=== PATIENT | female | born 1965 | race Two or more races ===

== ENCOUNTER 2022-06-16 13:07 | Emergency (ER) | payer SELFPAY ==
[2022-06-16 13:18] VITALS: BP 143/84; PULSE 82; RESP 20; TEMP 36.4; O2SAT 99; BMI 28.2
--- NOTE | 2022-06-16 13:23 | ED.HA ---
HPI - Headache General Chief Complaint: Headache <INDIRA Roland - Last Filed: 06/16/22 13:25> Stated Complaint: Migraine, vomiting <INDIRA Roland - Last Filed: 06/16/22 13:25> Time Seen by Provider: 06/16/22 13:26 <INDIRA Roland - Last Filed: 06/16/22 13:25> Source: patient <Leno Randall MD - Last Filed: 06/16/22 15:50> Mode of arrival: ambulatory <Leno Randall MD - Last Filed: 06/16/22 15:50> Limitations: no limitations <Leno Randall MD - Last Filed: 06/16/22 15:50> History of Present Illness HPI Narrative: patient with a long history of migraine with vomiting. This episode starting this morning <Leno Randall MD - Last Filed: 06/16/22 15:50> MD elicited complaint: headache and migraine <Leno Randall MD - Last Filed: 06/16/22 15:50> Pertinent past history: migraines <Leno Randall MD - Last Filed: 06/16/22 15:50> Onset (ago): hour(s) <Leno Randall MD - Last Filed: 06/16/22 15:50> Onset description: gradually <Leno Randall MD - Last Filed: 06/16/22 15:50> Severity: severe <Leno Randall MD - Last Filed: 06/16/22 15:50> Quality & Timing: aching and throbbing <Leno Randall MD - Last Filed: 06/16/22 15:50> Related Data Home Medications: Previous Rx's Medication Instructions Recorded naproxen 500 mg tablet (Naprosyn) 500 mg PO BID #20 tabs 06/16/22 ondansetron 4 mg disintegrating 4 mg PO Q8H 4 days #12 tabs 06/16/22 tablet <INDIRA Roland - Last Filed: 06/16/22 13:25> Allergies/Adverse Reactions: Allergies Allergy/AdvReac Type Severity Reaction Status Date / Time No Known Allergies Allergy Verified 06/16/22 13:18 <INDIRA Roland - Last Filed: 06/16/22 13:25> Review of Systems Review of Systems: Yes all other systems are reviewed and are negative <Leno Randall MD - Last Filed: 06/16/22 15:50> Neurologic: Denies Sensory deficit (Neuro) <Leno Randall MD - Last Filed: 06/16/22 15:50> Comments: headache and vomitting <Leno Randlal MD - Last Filed: 06/16/22 15:50> [facility] Past Medical History Medical History: Medical History (Updated 06/16/22 @ 15:50 by Leno Randall MD) Migraine <INDIRA Roland - Last Filed: 06/16/22 13:25> Social History Social History: Social History Advance Directives: No <INDIRA Roland - Last Filed: 06/16/22 13:25> Physical Exam Vital Signs: Vital Signs: Last Vital Signs Temp 97.5 F 06/16/22 13:18 Pulse 82 06/16/22 13:18 Resp 20 06/16/22 13:18 BP 143/84 H 06/16/22 13:18 Pulse Ox 99 06/16/22 13:18 O2 Del Method 06/16/22 13:18 BMI result Body Mass Index 28.2 <INDIRA Roland - Last Filed: 06/16/22 13:25> Vital Signs: Last Vital Signs Temp 97.5 F 06/16/22 13:18 Pulse 82 06/16/22 13:18 Resp 20 06/16/22 13:18 BP 143/84 H 06/16/22 13:18 Pulse Ox 99 06/16/22 13:18 O2 Del Method 06/16/22 13:18 BMI result Body Mass Index 28.2 <Leno Randall MD - Last Filed: 06/16/22 15:50> Const: Other: vomiting in pain <Leno Randall MD - Last Filed: 06/16/22 15:50> Nutritional Appearance: average body habitus <eLno Randall MD - Last Filed: 06/16/22 15:50> Orientation/consciousness: oriented to person and patient oriented x3 <Leno Randall MD - Last Filed: 06/16/22 15:50> Limitations: no limitations <Leno Randall MD - Last Filed: 06/16/22 15:50> HEENT: Head: Yes normal to inspection <Leno Randall MD - Last Filed: 06/16/22 15:50> Ears: external ears normal <Leno Randall MD - Last Filed: 06/16/22 15:50> General nose exam: Normal external nose present <Leno Randall MD - Last Filed: 06/16/22 15:50> Mouth: Normal oral and palatal mucosa present and oropharynx normal <Leno Randall MD - Last Filed: 06/16/22 15:50> Throat: Yes posterior oropharynx normal <Leno Randall MD - Last Filed: 06/16/22 15:50> Eyes: General: appearance normal, both eyes and all related structures <Leno Randall MD - Last Filed: 06/16/22 15:50> Neck: Other: supple <Leno Randall MD - Last Filed: 06/16/22 15:50> Neck: Yes normal visual inspection <Leno Randall MD - Last Filed: 06/16/22 15:50> Chest: Chest palpation & inspection: normal inspection of the chest <Leno Randall MD - Last Filed: 06/16/22 15:50> Resp: Auscultation: clear to auscultation bilaterally <Leno Randall MD - Last Filed: 06/16/22 15:50> Cardio: Jugular venous distension: no JVD <Leno Randall MD - Last Filed: 06/16/22 15:50> Rate: regular rate <Leno Randall MD - Last Filed: 06/16/22 15:50> Rhythm: regular rhythm <Leno Randall MD - Last Filed: 06/16/22 15:50> Heart sounds: S1 normal heart sound present and S2 normal heart sound present <Leno Randall MD - Last Filed: 06/16/22 15:50> GI: Inspection: Yes normal to inspection <Leno Randall MD - Last Filed: 06/16/22 15:50> Palpation (GI): Soft to palpation, nontender and No hepatosplenomegaly present <Leno Randall MD - Last Filed: 06/16/22 15:50> Auscultation: normal bowel sounds <Leno Randall MD - Last Filed: 06/16/22 15:50> : General: Yes no CVA tenderness <Leno Randall MD - Last Filed: 06/16/22 15:50> Back/Spine/Pelvis: Back: no CVA tenderness <Leno Randall MD - Last Filed: 06/16/22 15:50> Skin: General skin exam: no rashes or lesions noted <Leno Randall MD - Last Filed: 06/16/22 15:50> Neuro: General: oriented to person and patient oriented x3 <Leno Randall MD - Last Filed: 06/16/22 15:50> Cranial nerves: Yes CN's II-XII intact bilaterally <Leno Randall MD - Last Filed: 06/16/22 15:50> Motor exam (neuro): 5/5 motor strength present throughout <Leno Randall MD - Last Filed: 06/16/22 15:50> Sensory Exam: No Sensory deficit (Neuro) <Leno Randall MD - Last Filed: 06/16/22 15:50> Extrem: General: Yes normal to inspection <Leno Randall MD - Last Filed: 06/16/22 15:50> Psych: Appearance: grossly normal <Leno Randall MD - Last Filed: 06/16/22 15:50> Course Course Course Narrative: RME- 13:25pm - 56yoF c PMHx of migraine headaches presenting to the ED with complaints of a headache that started prior to arrival. With associated nausea and epigastric abdominal pain. at bedside is interpreter and translator due to patient speaks airbag. He is very upset reports that she is taking medication she should possibly be not be taking. Reports that she took 2 oxycodone that were her sisters and he told her not to take that. She is also taking Dramamine. Plan: Labs, COVID/influenza swab, drug urine screen. Patient is stable she will be sent back to the waiting room to be evaluated in the ED. <INDIRA Roland - Last Filed: 06/16/22 13:25> Reevaluation(s) Reevaluation #1: patient improved, feeling better neurologically intact <Leno Randall MD - Last Filed: 06/16/22 15:50> Time: 15:48 <Leno Randall MD - Last Filed: 06/16/22 15:50> Medications Administered Discontinued Medications Generic Name Dose Route Start Last Admin Trade Name Freq PRN Reason Stop Dose Admin Promethazine HCl 25 mg/ Sodium 51 mls @ 204 mls/hr 06/16/22 13:40 06/16/22 15:06 Chloride IV 06/16/22 13:41 Infused ONCE ONE Infusion Sodium Chloride 500 mls @ 250 mls/hr 06/16/22 13:45 06/16/22 13:53 Ns IVCONT 06/16/22 15:44 250 mls/hr .Q2H MAIDA Administration Ketorolac Tromethamine 30 mg 06/16/22 13:40 06/16/22 13:53 Ketorolac Tromethamine 30 Mg/Ml Vial IVPUSH 06/16/22 13:41 30 mg ONCE ONE Administration <INDIRA Roland - Last Filed: 06/16/22 13:25> Medications Administered Discontinued Medications Generic Name Dose Route Start Last Admin Trade Name Freq PRN Reason Stop Dose Admin Promethazine HCl 25 mg/ Sodium 51 mls @ 204 mls/hr 06/16/22 13:40 06/16/22 15:06 Chloride IV 06/16/22 13:41 Infused ONCE ONE Infusion Sodium Chloride 500 mls @ 250 mls/hr 06/16/22 13:45 06/16/22 13:53 Ns IVCONT 06/16/22 15:44 250 mls/hr .Q2H MAIDA Administration Ketorolac Tromethamine 30 mg 06/16/22 13:40 06/16/22 13:53 Ketorolac Tromethamine 30 Mg/Ml Vial IVPUSH 06/16/22 13:41 30 mg ONCE ONE Administration <Leno Randall MD - Last Filed: 06/16/22 15:50> Medical Decision Making Lab Data Result Diagrams: : 06/16/22 13:40 06/16/22 13:40 <INDIRA Roland - Last Filed: 06/16/22 13:25> Labs: Lab Results 06/16/22 06/16/22 06/16/22 Range/Units 13:40 13:40 13:40 WBC 9.1 (4.8-10.8) X10*3/uL RBC 4.39 (4.20-5.50) X10*6/uL Hgb 12.4 (12.0-16.0) g/dl Hct 38.8 (37.0-47.0) % MCV 88.4 (80.0-98.0) fL MCH 28.2 (27.0-33.0) pg MCHC 32.0 (31.0-35.0) g/dl RDW 13.0 (11.0-16.0) % Plt Count 267 (160-400) X10*3/uL MPV 11.2 (9.4-12.3) fL Immature Gran % (Auto) 0.3 (0.0-0.4) % Neut % (Auto) 68.9 (45-73) % Lymph % (Auto) 24.3 (20-40) % [place] % (Auto) 4.3 (2-11) % Eos % (Auto) 1.9 (0-4) % Baso % (Auto) 0.3 (0-2) % Lymph # (Auto) 2.2 (1.2-4.9) X10*3/uL [place] # (Auto) 0.4 (0.1-1.2) X10*3/uL Eos # (Auto) 0.2 (0.0-0.4) X10*3/uL Baso # (Auto) 0.0 (0.0-0.2) X10*3/uL Abs Immat Gran (auto) 0.03 (0.00-0.03) X10*3/uL Absolute Neuts (auto) 6.3 (2.0-8.3) x10*3/uL Absolute Nucleated RBC 0.000 (0.0-0.012) X10*3/uL Nucleated RBC % (auto) 0.0 (0.0-0.2) /100WBC PT 10.7 (10.0-13.1) SEC INR 0.9 (0.9-1.1) Sodium 142 (135-145) mmol/L Potassium 3.5 (3.3-5.1) mmol/L Chloride 105 (96-108) mmol/L Carbon Dioxide 25 (22-29) mmol/L Anion Gap 16 (12-20) BUN 23 H (9-16) mg/dL Creatinine 0.73 (0.5-1.4) mg/dL Estim Creat Clear Calc 92.5 Estimated GFR > 60 Random Glucose 134 H (60-115) mg/dL Calcium 9.5 (8.4-10.2) mg/dL Magnesium 2.0 (1.6-2.6) mg/dL Total Bilirubin 0.4 (0.0-1.0) mg/dL AST 13 (5-31) U/L ALT 21 (0-31) U/L Alkaline Phosphatase 75 (39-117) U/L Total Protein 7.9 (6.5-8.0) g/dL Albumin 5.0 (3.5-5.0) g/dL COVID-19 (BONITA) (Negative) COVID-19 Clin Com Influenza Type A (NAOMI) (Negative) Influenza Type B (NAOMI) (Negative) Influenza A & B Note 06/16/22 06/16/22 Range/Units 13:45 13:45 WBC (4.8-10.8) X10*3/uL RBC (4.20-5.50) X10*6/uL Hgb (12.0-16.0) g/dl Hct (37.0-47.0) % MCV (80.0-98.0) fL MCH (27.0-33.0) pg MCHC (31.0-35.0) g/dl RDW (11.0-16.0) % Plt Count (160-400) X10*3/uL MPV (9.4-12.3) fL Immature Gran % (Auto) (0.0-0.4) % Neut % (Auto) (45-73) % Lymph % (Auto) (20-40) % [place] % (Auto) (2-11) % Eos % (Auto) (0-4) % Baso % (Auto) (0-2) % Lymph # (Auto) (1.2-4.9) X10*3/uL [place] # (Auto) (0.1-1.2) X10*3/uL Eos # (Auto) (0.0-0.4) X10*3/uL Baso # (Auto) (0.0-0.2) X10*3/uL Abs Immat Gran (auto) (0.00-0.03) X10*3/uL Absolute Neuts (auto) (2.0-8.3) x10*3/uL Absolute Nucleated RBC (0.0-0.012) X10*3/uL Nucleated RBC % (auto) (0.0-0.2) /100WBC PT (10.0-13.1) SEC INR (0.9-1.1) Sodium (135-145) mmol/L Potassium (3.3-5.1) mmol/L Chloride (96-108) mmol/L Carbon Dioxide (22-29) mmol/L Anion Gap (12-20) BUN (9-16) mg/dL Creatinine (0.5-1.4) mg/dL Estim Creat Clear Calc Estimated GFR Random Glucose (60-115) mg/dL Calcium (8.4-10.2) mg/dL Magnesium (1.6-2.6) mg/dL Total Bilirubin (0.0-1.0) mg/dL AST (5-31) U/L ALT (0-31) U/L Alkaline Phosphatase (39-117) U/L Total Protein (6.5-8.0) g/dL Albumin (3.5-5.0) g/dL COVID-19 ([facility]ONITA) Negative (Negative) COVID-19 Clin Com See Note Influenza Type A (NAOMI) Negative (Negative) Influenza Type B (NAOMI) Negative (Negative) Influenza A & B Note See Note <INDIRA Roland - Last Filed: 06/16/22 13:25> Lab Results 06/16/22 06/16/22 06/16/22 Range/Units 13:40 13:40 13:40 WBC 9.1 (4.8-10.8) X10*3/uL RBC 4.39 (4.20-5.50) X10*6/uL Hgb 12.4 (12.0-16.0) g/dl Hct 38.8 (37.0-47.0) % MCV 88.4 (80.0-98.0) fL MCH 28.2 (27.0-33.0) pg MCHC 32.0 (31.0-35.0) g/dl RDW 13.0 (11.0-16.0) % Plt Count 267 (160-400) X10*3/uL MPV 11.2 (9.4-12.3) fL Immature Gran % (Auto) 0.3 (0.0-0.4) % Neut % (Auto) 68.9 (45-73) % Lymph % (Auto) 24.3 (20-40) % [place] % (Auto) 4.3 (2-11) % Eos % (Auto) 1.9 (0-4) % Baso % (Auto) 0.3 (0-2) % Lymph # (Auto) 2.2 (1.2-4.9) X10*3/uL [place] # (Auto) 0.4 (0.1-1.2) X10*3/uL Eos # (Auto) 0.2 (0.0-0.4) X10*3/uL Baso # (Auto) 0.0 (0.0-0.2) X10*3/uL Abs Immat Gran (auto) 0.03 (0.00-0.03) X10*3/uL Absolute Neuts (auto) 6.3 (2.0-8.3) x10*3/uL Absolute Nucleated RBC 0.000 (0.0-0.012) X10*3/uL Nucleated RBC % (auto) 0.0 (0.0-0.2) /100WBC PT 10.7 (10.0-13.1) SEC INR 0.9 (0.9-1.1) Sodium 142 (135-145) mmol/L Potassium 3.5 (3.3-5.1) mmol/L Chloride 105 (96-108) mmol/L Carbon Dioxide 25 (22-29) mmol/L Anion Gap 16 (12-20) BUN 23 H (9-16) mg/dL Creatinine 0.73 (0.5-1.4) mg/dL Estim Creat Clear Calc 92.5 Estimated GFR > 60 Random Glucose 134 H (60-115) mg/dL Calcium 9.5 (8.4-10.2) mg/dL Magnesium 2.0 (1.6-2.6) mg/dL Total Bilirubin 0.4 (0.0-1.0) mg/dL AST 13 (5-31) U/L ALT 21 (0-31) U/L Alkaline Phosphatase 75 (39-117) U/L Total Protein 7.9 (6.5-8.0) g/dL Albumin 5.0 (3.5-5.0) g/dL COVID-19 ([facility]ONITA) (Negative) COVID-19 Clin Com Influenza Type A (NAOMI) (Negative) Influenza Type B (NAOMI) (Negative) Influenza A & B Note 06/16/22 06/16/22 Range/Units 13:45 13:45 WBC (4.8-10.8) X10*3/uL RBC (4.20-5.50) X10*6/uL Hgb (12.0-16.0) g/dl Hct (37.0-47.0) % MCV (80.0-98.0) fL MCH (27.0-33.0) pg MCHC (31.0-35.0) g/dl RDW (11.0-16.0) % Plt Count (160-400) X10*3/uL MPV (9.4-12.3) fL Immature Gran % (Auto) (0.0-0.4) % Neut % (Auto) (45-73) % Lymph % (Auto) (20-40) % [place] % (Auto) (2-11) % Eos % (Auto) (0-4) % Baso % (Auto) (0-2) % Lymph # (Auto) (1.2-4.9) X10*3/uL [place] # (Auto) (0.1-1.2) X10*3/uL Eos # (Auto) (0.0-0.4) X10*3/uL Baso # (Auto) (0.0-0.2) X10*3/uL Abs Immat Gran (auto) (0.00-0.03) X10*3/uL Absolute Neuts (auto) (2.0-8.3) x10*3/uL Absolute Nucleated RBC (0.0-0.012) X10*3/uL Nucleated RBC % (auto) (0.0-0.2) /100WBC PT (10.0-13.1) SEC INR (0.9-1.1) Sodium (135-145) mmol/L Potassium (3.3-5.1) mmol/L Chloride (96-108) mmol/L Carbon Dioxide (22-29) mmol/L Anion Gap (12-20) BUN (9-16) mg/dL Creatinine (0.5-1.4) mg/dL Estim Creat Clear Calc Estimated GFR Random Glucose (60-115) mg/dL Calcium (8.4-10.2) mg/dL Magnesium (1.6-2.6) mg/dL Total Bilirubin (0.0-1.0) mg/dL AST (5-31) U/L ALT (0-31) U/L Alkaline Phosphatase (39-117) U/L Total Protein (6.5-8.0) g/dL Albumin (3.5-5.0) g/dL COVID-19 ([facility]) Negative (Negative) COVID-19 Clin Com See Note Influenza Type A (NAOMI) Negative (Negative) Influenza Type B (NAOMI) Negative (Negative) Influenza A & B Note See Note <Leno Randall MD - Last Filed: 06/16/22 15:50> Discharge Plan Discharge Clinical Impression: Migraine <INDIRA Roland - Last Filed: 06/16/22 13:25> Patient Disposition: Home, Self-Care <INDIRA Roland - Last Filed: 06/16/22 13:25> Instructions: Migraine Headache (ED) <INDIRA Roland - Last Filed: 06/16/22 13:25> Prescriptions: New ondansetron 4 mg tablet,disintegrating 4 mg PO Q8H 4 Days Qty: 12 0RF naproxen [Naprosyn] 500 mg tablet 500 mg PO BID Qty: 20 0RF <INDIRA Roland - Last Filed: 06/16/22 13:25> Referrals: Physician,None [Primary Care Provider] - 1 week <INDIRA Roland - Last Filed: 06/16/22 13:25>
[2022-06-16 13:45] LABS: MANUAL DIFF FLAG NO
[2022-06-16 13:46] LABS: Basophils Percent Auto 0.3 % (0-2); Eosinophils Absolute Auto 0.2 X10*3/uL (0.0-0.4); Eosinophils Percent Auto 1.9 % (0-4); Hematocrit 38.8 % (37.0-47.0); Hemoglobin 12.4 g/dl (12.0-16.0); Imm Gran Abs Auto 0.03 X10*3/uL (0.00-0.03); Imm Gran Pct Auto 0.3 % (0.0-0.4); Lymphocytes Absolute Auto 2.2 X10*3/uL (1.2-4.9); Lymphocytes Percent Auto 24.3 % (20-40); Mean Corpuscular Hemoglobin 28.2 pg (27.0-33.0); Mean Corpuscular Volume 88.4 fL (80.0-98.0); Mean Platelet Volume 11.2 fL (9.4-12.3); Monocytes Absolute Auto 0.4 X10*3/uL (0.1-1.2); Monocytes Percent Auto 4.3 % (2-11); Neutrophils Absolute Auto 6.3 x10*3/uL (2.0-8.3); Neutrophils Percent Auto 68.9 % (45-73); Platelet Count 267 X10*3/uL (160-400); Red Blood Count 4.39 X10*6/uL (4.20-5.50); White Blood Count 9.1 X10*3/uL (4.8-10.8)
[2022-06-16 13:52] LABS: INTERNATIONAL NORM RATIO 0.9 (0.9-1.1); Prothrombin Time 10.7 SEC (10.0-13.1)
[2022-06-16] MEDS: 0.9 % Sodium Chloride 500 ML 250 ML IVCONT (13:53)
[2022-06-16] MEDS: Ketorolac Tromethamine 30 MG/ML VIAL IVPUSH (13:53)
--- NOTE | 2022-06-16 14:04 | PC.NURSE ---
pt a&ox3, nauseous, dry heaving, reporting sudden onset migraine, hx of same. 20G IV placed right AC, labs drawn, medicated per provider order. no new orders at this time.
[2022-06-16 14:08] LABS: COVID-19 Test Negative (Negative); IDNOW Serial# 16C4AD1C
[2022-06-16 14:11] LABS: IDNOW Serial# BCCEAD1C; Influenza A Negative (Negative); Influenza B2 Negative (Negative)
[2022-06-16 14:14] LABS: Alanine Aminotransferase 21 U/L (0-31); Alkaline Phosphatase 75 U/L (39-117); Anion Gap 16 (12-20); Aspartate Amino Transferase 13 U/L (5-31); Bilirubin Total 0.4 mg/dL (0.0-1.0); Blood Urea Nitrogen 23 mg/dL (9-16); Calcium 9.5 mg/dL (8.4-10.2); Carbon Dioxide 25 mmol/L (22-29); Chloride 105 mmol/L (96-108); Creatinine Clr Calc Pharmacy 92.5; Estimated Glomerular Filt Rate > 60; Glucose Random 134 mg/dL (60-115); Potassium 3.5 mmol/L (3.3-5.1); Sodium 142 mmol/L (135-145); Total Protein 7.9 g/dL (6.5-8.0)
== END 2022-06-16 16:26 | disposition home or self-care (01) ==
PROVIDERS: Physician Assistant Medical; Emergency Provider Emergency Medicine
DX: G43.909 Migraine, unspecified, not intractable, without status migrainosus (principal); Z20.822 Contact with and (suspected) exposure to COVID-19
CPT/HCPCS: 36415; 80053; 83735; 85025; 85610; 87502; 87635; 96361; 96365; 96375; 99284; J1885; J2550